=== PATIENT | female | born 1970 | race Caucasian/White ===

== ENCOUNTER 2019-08-13 07:19 | Observation (INO) | payer OTHER ==
[2019-08-12 10:50] LABS: BASOPHILS % 0.5 % (0.0-1.0); EOSINOPHILS # (AUTO) 0.1 (0.0-0.4); EOSINOPHILS % 1.7 % (0.0-6.0); HEMATOCRIT 36.5 % (34.2-44.1); HEMOGLOBIN 11.3 g/dL (12.0-16.0); LYMPHOCYTES # (AUTO) 2.8 (1.0-3.2); LYMPHOCYTES % 42.1 % (18.0-39.1); MEAN CORPUSCULAR HEMOGLOBIN 23.1 pg (28-32); MEAN CORPUSCULAR VOLUME 74.6 fL (81-99); MONOCYTES # (AUTO) 0.7 (0.2-0.8); MONOCYTES % 10.6 % (4.4-11.3); NEUTROPHILS % 44.9 % (38.7-80.0); PLATELET COUNT 409 x10e3/uL (140-360); RED BLOOD COUNT 4.89 x10e6/uL (3.6-5.1); RED CELL DISTRIBUTION WIDTH 17.2 % (11.7-14.4)
[~2019-08-13] VITALS: Ht 170.2 cm; Wt 91.6 kg
--- OUTSIDE RECORDS SUMMARY | 2019-08-13 07:21 | XMS REPORT ---
Author Author [facility] Address Unknown Phone Unavailable Care Team Providers Care Water Vessel Captain Name Role Phone DR AG MENDOZA Unavailable Unavailable Problems This patient has no known problems. Allergies, Adverse Reactions, Alerts This patient has no known allergies or adverse reactions. Medications This patient has no known medications. Encounters Start Date/Time End Date/Time Encounter Type Admission Type Attending Clinicians Care Facility Care Department Encounter ID 2019-06-11 09:22:00 2019-06-11 11:20:00 Outpatient C AG MENDOZA [facility] [id number] Results Test Description Test Time Test Comments Text Results Atomic Results Result Comments URINE MONOCLONALFB 2019-06-11 10:15:00 PREG UR (test code=PGU) Negative NEGATIVE
[2019-08-13] MEDS ORDERED: CEFAZOLIN SOD 1 GM/NS 50ML 100 ML IV ONE (07:46)
[2019-08-13] MEDS ORDERED: BUPIVACAINE 0.25% 30ML SDV INJ ONE (08:48)
[2019-08-13] MEDS ORDERED: ONDANSETRON HCL INJ 2MG/ML 2ML 2 MG/ML VIAL IV PRN (09:45)
[2019-08-13] MEDS ORDERED: SCOPOLAMINE 1.5 MG PATCH TOP SCH (09:45)
[2019-08-13] MEDS ORDERED: ACETAMINOPHEN 1000 MG/100 ML 100 ML IV ONE (10:12)
--- NOTE | 2019-08-13 11:25 | Operative Report ---
DATE OF PROCEDURE: 08/13/2019 SURGEON: Boubacar Crump MD PREOPERATIVE DIAGNOSIS: Paraesophageal hernia. POSTOPERATIVE DIAGNOSIS: Paraesophageal hernia. PREOPERATIVE INDICATION: Treat disease, prevent complications related to paraesophageal hernia. PROCEDURES: Laparoscopic repair of paraesophageal hernia (CPT 16460). ANESTHESIA: General. TECHNICAL BUSINESS ANALYST: Marquis Olguin, surgical physician assistant (needed due to complexity of case). FLUIDS: 1 L of crystalloid. ESTIMATED BLOOD LOSS: 20 mL. DRAINS: None. COMPLICATIONS: None. SPECIMENS: None. GRAFTS: None. FINDINGS: Large paraesophageal hernia. PROCEDURE IN DETAIL: The patient was brought to the operating room and was intubated under general endotracheal anesthesia. She was sterilely prepped and draped in the usual fashion. A preprocedure pause was performed identifying the patient, use of preop antibiotics, intended procedure, and staff surgeon. Access was gained to the peritoneal cavity via a 5 mm left subcostal incision. Four additional trocars placed in the standard positions. Liver retractor was used to expose the stomach and hiatus. There was a large paraesophageal hernia with large portion of the proximal stomach herniated through this defect. I dissected out the hernia by dividing the attachments from the left and right emerson of the diaphragm as well as anteriorly and posteriorly into the chest cavity for several centimeters until I was able to circumferentially divide all attachments and reduced the esophagus to about 3 cm of intraabdominal esophagus. Once this was done, I repaired the hiatal hernia posteriorly with several interrupted 2-0 Surgidac suture; one suture used anteriorly. Once this was completed, we then verified hemostasis, removed the liver retractor and desufflated the abdomen. The trocars were removed. Incision sites were closed with 4-0 Monocryl suture in a subcuticular fashion. Dermabond dressings were applied. The patient tolerated the procedure well. Type of wound was type 1, clean. Boubacar Crump MD C/MODL /[id number]
--- NOTE | 2019-08-13 11:45 | Operative Report ---
DATE OF PROCEDURE: 08/13/2019 SURGEON: Boubacar Crump MD PREOPERATIVE DIAGNOSES: 1. Obesity. 2. Hiatal hernia. 3. Hypertension. POSTOPERATIVE DIAGNOSES: 1. Obesity. 2. Hiatal hernia. 3. Hypertension. PREOPERATIVE INDICATION: Treat disease, prevent complications related to comorbid conditions of obesity. PROCEDURE: Laparoscopic vertical sleeve gastrectomy with hiatal hernia repair. ANESTHESIA: General. ASSISTANTS: Marquis Olguin, surgical garment inspector (needed due to complexity of case). FLUIDS: 1 L of crystalloid. ESTIMATED BLOOD LOSS: 20 mL. DRAINS: None. COMPLICATIONS: None. SPECIMENS: Partial stomach. GRAFTS: None. FINDINGS: 1. Large paraesophageal hernia. 2. Negative intraoperative EGD leak test. The patient details this portion of the procedure is a self-pay portion, dictated prior to this is covered by insurance. PROCEDURE IN DETAIL: The patient was brought to the operating room, was intubated under general endotracheal anesthesia. She was sterilely prepped and draped in the usual fashion. A preprocedure pause was performed identifying the patient, use of perioperative antibiotics, intended procedure, and staff surgeon. Access was gained via a 5 mm left subcostal incision using a Veress needle. The abdomen was insufflated to a pressure of 15 mmHg pressure. Four additional trocars were placed in standard position. Liver retractor was used to expose stomach and the hiatus. After repairing the paraesophageal hernia, the greater curvature was mobilized by ligating the gastroepiploic, short gastric, and posterior short gastric vessels using the [place] LigaSure device from the 3 cm proximal to the pyloric valve to the left emerson of the diaphragm. Once this was completed, an adult-sized endoscope was used as a bougie along the lesser curvature of the stomach. The greater curve of the stomach was resected with five firings of a 60 mm purple load Covidien stapling device. Once that was completed, intraoperative EGD leak test was performed. No leaks were identified. The specimen was removed through the right periumbilical port site. The port site was closed with 0 Vicryl suture using the [place] technique in a [id number] fashion. We then verified hemostasis, and removed the liver retractor and desufflated the abdomen. The trocars were removed. Incision sites were closed with 4-0 Monocryl suture in a subcuticular fashion. Dermabond dressings were applied. A 0.25% bupivacaine was used both at the preperitoneal incision sites. All surgical sponges and counts were correct. The patient tolerated the procedure well. Type of wound was type 2, clean, contaminated. MD PEDRITO Zhou/KAMILLE /[id number]
[2019-08-13 12:31] VITALS: BP 131/62
[2019-08-13] MEDS: SODIUM CHLORIDE 0.9% 1000ML 1,000 ML IV SCH ×2 (12:57→17:44)
[2019-08-13] MEDS: MORPHINE SULFATE 2 MG/ML SYR 1ML IV PRN ×4 (13:03→19:36)
[2019-08-13 13:23] VITALS: BP 131/62
[2019-08-13] MEDS ORDERED: ROCURONIUM BROMIDE 10 MG/ML 5ML VIAL ONE (14:45)
[2019-08-13] MEDS ORDERED: PROPOFOL IV EMULSION 10 MG/ML 20 ML VIAL ONE (14:45)
[2019-08-13] MEDS ORDERED: EPHEDRINE SULFATE INJ 50 MG/10 ML SYR ONE (14:45)
[2019-08-13] MEDS ORDERED: SEVOFLURANE INHAL SOLN 250 ML PEN BTL ONE (14:45)
[2019-08-13] MEDS ORDERED: DEXAMETHASONE SOD PHOS INJ 4 MG/ML VIAL ONE (14:45)
[2019-08-13] MEDS ORDERED: LIDOCAINE HCL 2% LOCAL INJ 5 ML SDV VIAL INJ ONE (14:45)
[2019-08-13] MEDS ORDERED: ONDANSETRON HCL INJ 2MG/ML 2ML 2 MG/ML VIAL ONE (14:45)
[2019-08-13] MEDS ORDERED: FENTANYL CITRATE/PF 100MCG/2 ML INJ ONE (15:10)
[2019-08-13] MEDS ORDERED: MIDAZOLAM HCL 2 MG/2 ML VIAL ONE (15:10)
[2019-08-13 15:44] VITALS: BP 163/74
[2019-08-13 20:00] VITALS: BP 134/68
[2019-08-13] MEDS: ENOXAPARIN SOD INJ 40 MG/0.4 ML SYR SC SCH (20:47)
[2019-08-14] VITALS: BP 123/58
[2019-08-14] MEDS: MORPHINE SULFATE 2 MG/ML SYR 1ML IV PRN ×4 (02:55→12:00)
[2019-08-14 04:00] VITALS: BP 136/69
[2019-08-14] MEDS: SODIUM CHLORIDE 0.9% 1000ML 1,000 ML IV SCH ×2 (05:39→09:31)
[2019-08-14 06:07] LABS: BASOPHILS % 0.2 % (0.0-1.0); HEMATOCRIT 32.6 % (34.2-44.1); HEMOGLOBIN 9.7 g/dL (12.0-16.0); LYMPHOCYTES # (AUTO) 1.9 (1.0-3.2); LYMPHOCYTES % 23.3 % (18.0-39.1); MEAN CORPUSCULAR HEMOGLOBIN 22.8 pg (28-32); MEAN CORPUSCULAR HGB CONC 29.8 g/dL (31-35); MEAN CORPUSCULAR VOLUME 76.5 fL (81-99); MONOCYTES % 11.9 % (4.4-11.3); NEUTROPHILS # (AUTO) 5.2 (2.1-6.9); NEUTROPHILS % 64.4 % (38.7-80.0); PLATELET COUNT 334 x10e3/uL (140-360); RED BLOOD COUNT 4.26 x10e6/uL (3.6-5.1); RED CELL DISTRIBUTION WIDTH 17.2 % (11.7-14.4)
[2019-08-14 06:25] LABS: ALANINE AMINOTRANSFERASE 31 IU/L (0-55); ALBUMIN 3.1 g/dL (3.5-5.0); ALBUMIN/GLOBULIN RATIO 0.9 (0.8-2.0); ALKALINE PHOSPHATASE 56 IU/L (40-150); ANION GAP 11.5 mmol/L (8-16); BLOOD UREA NITROGEN 10 mg/dL (7-26); BUN/CREATININE RATIO 13 (6-25); CALCIUM 9.1 mg/dL (8.4-10.2); CARBON DIOXIDE 26 mmol/L (22-29); CHLORIDE 105 mmol/L (98-107); CREATININE, SERUM 0.78 mg/dL (0.57-1.11); EST GLOMERULAR FILTRATION RATE > 60 ML/MIN (60-); GLUCOSE 93 mg/dL (74-118); PHOSPHORUS 3.5 MG/DL (2.3-4.7); POTASSIUM 4.5 mmol/L (3.5-5.1); SODIUM 138 mmol/L (136-145)
[2019-08-14] MEDS ORDERED: HYDROCODONE/APAP 7.5MG-325MG 1 EA TAB PO PRN (07:30)
[2019-08-14 08:00] VITALS: BP 141/66
[2019-08-14] MEDS: ENOXAPARIN SOD INJ 40 MG/0.4 ML SYR SC SCH (08:09)
[2019-08-14 08:17] VITALS: BP 136/69
[2019-08-14] MEDS ORDERED: TYLENOL WITH C1 EACH PO (12:48)
[2019-08-14] MEDS ORDERED: ZOFRAN4 MG PO (12:49)
[2019-08-14 12:53] VITALS: BP 126/60
== END 2019-08-14 13:20 | disposition home or self-care (01) ==
LOC: OR 07:19 → PACU V 11:30 → MED/SURG 12:06
PROVIDERS: ADMIT Surgery; ATTEND Surgery
DX: K44.9 Diaphragmatic hernia without obstruction or gangrene (principal); E66.01 Morbid (severe) obesity due to excess calories; Z68.31 Body mass index [BMI] 31.0-31.9, adult; K21.9 Gastro-esophageal reflux disease without esophagitis
CPT/HCPCS: 36415 ×2; 43281; 43775; 80053; 81025; 83735; 84100; 85025 ×2; 93005; 96361 ×2; G0378 ×2; J0131; J0690; J1100; J1650 ×2; J2001; J2250; J2270 ×2; J2405 ×2; J2704; J3010; J7030 ×2; 43235